=== PATIENT | male | born 1985 | race African-American/Black ===

== ENCOUNTER 2017-07-15 16:59 | Emergency (ER) | payer BC ==
[~2017-07-15] VITALS: Ht 193 cm; Wt 104.3 kg
[2017-07-15] MEDS ORDERED: AZO STANDARD95 MG PO (17:36)
[2017-07-15 18:19] LABS: URINE BILIRUBIN NEGATIVE (Negative); URINE BLOOD NEGATIVE (Negative)
[2017-07-15 18:23] LABS: URINE COLOR DK ORANGE; URINE LEUKOCYTES-REFLEX TRACE (Negative)
[2017-07-15 18:27] LABS: CASTS None Seen /LPF (None Seen); SQUAMOUS None Seen /LPF (0-3); URINE RBC None Seen /HPF (0-2); URINE WBC-REFLEX 0-5 Rare /HPF (0-5)
[2017-07-15 18:28] LABS: CRYSTALS None Seen /LPF (None Seen)
[2017-07-15 18:31] LABS: ABSOLUTE NEUTROPHILS 6.8 thou/uL (1.4-8.2); BASOPHILS 0.5 % (0.0-2.0); EOSINOPHILS 2.1 % (0.0-3.0); HEMATOCRIT 47.2 % (42.0-52.0); HEMOGLOBIN 16.2 gm/dL (14.0-18.0); LYMPHOCYTES 13.1 % (24.0-44.0); MCH 27.7 pg (26.0-34.0); MCHC 34.2 g/dL (28.0-37.0); MCV 81.1 fL (80.0-100.0); MONOCYTES 8.6 % (1.0-8.0); PLATELET COUNT 180 thou/uL (150-400); POLYS 75.7 % (36.0-66.0); RBC 5.82 mil/uL (4.50-6.00); RDW 12.8 % (10.5-14.5)
[2017-07-15 18:36] LABS: MANUAL DIFF NO
[2017-07-15 18:40] LABS: CALCIUM 9.5 mg/dL (8.5-10.1); CREATININE 1.5 mg/dL (0.7-1.3); POTASSIUM 3.4 mmol/L (3.5-5.1)
[2017-07-15 18:47] LABS: ALBUMIN 4.1 g/dL (3.4-5.0); TOTAL BILIRUBIN 0.9 mg/dL (<0.1-1.0); TOTAL PROTEIN 8.4 g/dL (6.4-8.2)
[2017-07-15] MEDS ORDERED: NORCO 5-325 TA1 EACH PO (20:38)
[2017-07-15] MEDS ORDERED: CIPROFLOXACIN500 M1 PO (20:38)
[2017-07-15] MEDS ORDERED: FLAGYL500 MG PO (20:38)
[2017-07-15 21:20] VITALS: BP 143/67
== END 2017-07-15 21:23 | disposition home or self-care (01) ==
LOC: ER 16:59
PROVIDERS: Emergency Medicine
DX: K57.92 Diverticulitis of intestine, part unspecified, without perforation or abscess without bleeding (principal); F10.99 Alcohol use, unspecified with unspecified alcohol-induced disorder

== ENCOUNTER 2019-04-15 08:20 | Emergency (ER) | payer OTHER ==
[~2019-04-15] VITALS: Ht 193 cm; Wt 107.0 kg
[~2019-04-15 08:20] MED LIST: AZO STANDARD95 MG PO; CIPROFLOXACIN500 M1 PO; FLAGYL500 MG PO; NORCO 5-325 TA1 EACH PO
[2019-04-15 08:46] LABS: URINE BILIRUBIN NEGATIVE (Negative); URINE BLOOD NEGATIVE (Negative); URINE CLARITY CLEAR; URINE COLOR YELLOW; URINE GLUCOSE-RANDOM* NEGATIVE (Negative); URINE KETONES NEGATIVE (Negative); URINE LEUKOCYTES-REFLEX NEGATIVE (Negative); URINE NITRITE-REFLEX NEGATIVE (Negative); URINE PROTEIN (DIPSTICK) TRACE (Negative); URINE SPECIFIC GRAVITY 1.015 (1.005-1.035)
[2019-04-15 08:46] LABS: ABSOLUTE NEUTROPHILS 7.6 thou/uL (1.4-8.2); BASOPHILS 0.3 % (0.0-2.0); EOSINOPHILS 1.1 % (0.0-3.0); HEMOGLOBIN 15.4 gm/dL (14.0-18.0); LYMPHOCYTES 9.1 % (24.0-44.0); MCH 27.1 pg (26.0-34.0); MCHC 33.4 g/dL (28.0-37.0); MCV 80.9 fL (80.0-100.0); MONOCYTES 8.5 % (1.0-8.0); PLATELET COUNT 192 thou/uL (150-400); RBC 5.68 mil/uL (4.50-6.00); RDW 12.7 % (10.5-14.5); WBC 9.4 thou/uL (4.0-11.0)
[2019-04-15 08:57] LABS: CALCIUM 9.5 mg/dL (8.5-10.1); CREATININE 1.2 mg/dL (0.7-1.3); POTASSIUM 3.8 mmol/L (3.5-5.1)
[2019-04-15 09:03] LABS: ALBUMIN 3.9 g/dL (3.4-5.0); TOTAL BILIRUBIN 1.2 mg/dL (<0.1-1.0); TOTAL PROTEIN 8.2 g/dL (6.4-8.2)
[2019-04-15] MEDS ORDERED: BENTYL 20 MG TA20 M1 PO (09:50)
[2019-04-15] MEDS ORDERED: FLAGYL500 M1 PO (09:50)
[2019-04-15] MEDS ORDERED: CEFDINIR300 MG PO (09:50)
[2019-04-15] MEDS ORDERED: NAPROSYN500 MG PO (10:33)
[2019-04-15 10:42] VITALS: BP 134/92
== END 2019-04-15 10:44 | disposition home or self-care (01) ==
LOC: ER 08:20
PROVIDERS: Emergency Medicine
DX: K57.32 Diverticulitis of large intestine without perforation or abscess without bleeding (principal)